=== PATIENT | female | born 1960 | race Caucasian/White ===

== ENCOUNTER 2018-11-20 14:19 | Emergency (ER) | payer OTHER ==
[~2018-11-20] VITALS: Ht 154.9 cm; Wt 62.6 kg
[2018-11-20 14:26] VITALS: Ht 154.9 cm; Wt 62.6 kg
[2018-11-20 14:48] LABS: BASOPHIL % 0.9 % (0-2); PLATELET COUNT 234 x10^3mcL (130-400); RED CELL DISTRIBUTION WIDTH 12.8 % (11.5-14.5)
[2018-11-20 15:28] LABS: ALBUMIN 3.6 g/dL (3.4-5.0); BILIRUBIN TOTAL 0.28 mg/dL (0.20-1.00); CALCIUM 7.8 mg/dL (8.5-10.1); CREATININE SERUM 2.1 mg/dL (0.6-1.0); POTASSIUM SERUM 4.2 mmol/L (3.5-5.1)
[2018-11-20 17:30] VITALS: BP 141/82
== END 2018-11-20 17:38 | disposition home or self-care (01) ==
LOC: ED 14:19
DX: F41.1 Generalized anxiety disorder (principal); R07.89 Other chest pain; I12.9 Hypertensive chronic kidney disease with stage 1 through stage 4 chronic kidney disease, or unspecified chronic kidney disease; N18.9 Chronic kidney disease, unspecified
CPT/HCPCS: 36415; Q0092